=== PATIENT | male | born 1975 | race American Indian/Alaskan Native ===

== ENCOUNTER 2018-10-30 22:18 | Emergency (ER) | payer SELFPAY ==
[2018-10-30] MEDS ORDERED: ZOFRAN IM ONE (22:45)
[2018-10-30] MEDS ORDERED: SUBLIMAZE IM ONE (22:45)
[2018-10-30] MEDS ORDERED: TORADOL IM ONE (22:46)
--- NOTE | 2018-10-30 22:53 | Emergency Department Report ---
HPI - General Chief Complaint: Back Pain/Injury Time Seen by Provider: 10/30/18 22:37 - HPI HPI: Room 6 The patient is a 43-year-old male presenting with chief complaint of back and leg pain. The patient states she had a history of lumbar fusion at L4-L5 in 2010. The patient states since the surgery he is intermittently had pain in the left side of his low back sometimes radiating to the left hip. The patient states for the past 10 days he again suffered from this pain and states it radiates from his low back to the left lower extremity. Patient denies any recent trauma. Patient denies any history of fever. The patient gives his pain score of 8/10 Location: [See above] Duration: [See above] Quality: [See above] Severity: [See above] Modifying factors: [see above] Context: [see above] Mode of transportation: [not driving] ED Past Medical Hx - Past Medical History Previous Medical History?: Yes Hx Hypertension: Yes Hx Heart Attack/AMI: Yes - Surgical History Past Surgical History?: Yes Hx Coronary Stent: Yes (x1) Hx Cholecystectomy: Yes Additional Surgical History: back surgery/fusion L4/L5 2010 - Family History Family history: no significant - Social History Smoking Status: Current Every Day Smoker (1/2 pack per day) Substance Use Type: None (denies illicit drug use), Alcohol (occasional) - Medications Home Medications: Home Medications Medication Instructions Recorded Confirmed Last Taken Type Cyclobenzaprine [Flexeril] 10 mg PO TID PRN #20 tablet 10/30/18 Unknown Rx HYDROcodone/APAP 5-325 [[place] 1 - 2 each PO Q6HR PRN #14 tablet 10/30/18 Unknown Rx 5/325] Ibuprofen [Motrin 800 MG tab] 800 mg PO Q8HR PRN #20 tablet 10/30/18 Unknown Rx ED Review of Systems ROS: Stated complaint: LOWER HIP/BACK PAIN Other details as noted in HPI Constitutional: denies: fever Eyes: denies: eye pain ENT: denies: throat pain Respiratory: no symptoms reported Cardiovascular: denies: chest pain Endocrine: no symptoms reported Gastrointestinal: denies: abdominal pain Genitourinary: denies: dysuria Musculoskeletal: back pain, arthralgia Neurological: denies: headache Physical Exam - Physical Exam Vital Signs: Vital Signs 10/30/18 22:20 Temperature 98.2 F Pulse Rate 76 Respiratory 18 Rate Blood Pressure 209/111 O2 Sat by Pulse 100 Oximetry Physical Exam: GENERAL: The patient is well-developed well-nourished []. [] HEENT: Normocephalic. Atraumatic. Extraocular motions are intact. Patient has moist mucous membranes. NECK: Supple. Trachea midline CHEST/LUNGS: There is no respiratory distress noted. HEART/CARDIOVASCULAR: Regular. There is no tachycardia. 2+ left DP ABDOMEN: Abdomen is soft, nontender. Patient has normal bowel sounds. There is no abdominal distention. SKIN: There is no rash. There is no edema. There is no diaphoresis. NEURO: The patient is awake, alert, and oriented. The patient is cooperative. The patient has normal speech MUSCULOSKELETAL: There is no evidence of acute injury. ED Course Vital Signs 10/30/18 22:20 Temperature 98.2 F Pulse Rate 76 Respiratory 18 Rate Blood Pressure 209/111 O2 Sat by Pulse 100 Oximetry ED Medical Decision Making - Radiology Data Radiology results: report reviewed (lumbar spine x-ray, left hip x-ray), image reviewed (lumbar spine x-ray, left hip x-ray) interpreted by me: Lumbar spine x-ray-no acute fracture seen. Hardware in place Left hip x-ray-no acute fracture [facility] [address] [place] [address] XRay Report Signed Patient: RACHEL ROSE MR#: [id number] : 1975 Acct:[id number] Age/Sex: 43 / M ADM Date: 10/30/18 Loc: ED Attending Dr: Ordering Physician: DHEERAJ ROBLES MD Date of Service: 10/30/18 Procedure(s): XR spine lumbosacral 2-3V Accession Number(s): [id number] cc: DHEERAJ ROBLES MD Fluoro Time In Minutes: LUMBAR SPINE 3 VIEWS INDICATION / CLINICAL INFORMATION: pain. COMPARISON: Pelvis radiograph 10/30/2018 FINDINGS: VERTEBRAE: No acute fracture. Straightening of normal lumbar lordosis is noted, which may be positional. Posterior instrumented fusion has been performed at L5-S1. Hardware appears intact and appropriately aligned. DISC SPACES / FACET JOINTS:Disc spaces are well preserved. Facet arthrosis is present. PARASPINAL SOFT TISSUES:Diffuse atherosclerotic calcification of the infrarenal aorta and iliac arteries is noted. ADDITIONAL FINDINGS: None. Signer Name: Tyler Reyes MD Signed: 10/30/2018 11:22 PM Workstation Name: [id number] Transcribed By: [email or web address] Dictated By: Tyler Reyes MD Electronically Authenticated By: Tyler Reyes MD Signed Date/Time: 10/30/182321 DD/ 19 TD/TT: [facility] [address] [place] [address] XRay Report Signed Patient: RACHEL ROSE MR#: [id number] : 1975 Acct:[id number] Age/Sex: 43 / M ADM Date: 10/30/18 Loc: ED Attending Dr: Ordering Physician: DHEERAJ ROBLES MD Date of Service: 10/30/18 Procedure(s): XR hip 2-3V LT Accession Number(s): [id number] cc: DHEERAJ ROBLES MD Fluoro Time In Minutes: LEFT HIP 2 VIEWS INDICATION / CLINICAL INFORMATION: Pain in left hip. History of injury 2 months ago. COMPARISON: None available. FINDINGS: BONES and JOINT(S): No acute fracture or subluxation. No significant arthritis. Prior fusion of L5- S1 appears unremarkable. SOFT TISSUES: No acute findings. There is moderate generalized atherosclerosis. ADDITIONAL FINDINGS: No additional significant findings. IMPRESSION: No acute findings. Signer Name: Jarrod Mendoza MD Signed: 10/30/2018 11:20 PM Workstation Name: [id number] Transcribed By: RUKHSANA Dictated By: Jarrod Mendoza MD Electronically Authenticated By: Jarrod Mendoza MD Signed Date/Time: 10/30/182319 DD/ 18 TD/TT: - Differential Diagnosis lumbar radiculopathy Critical care attestation.: If time is entered above; I have spent that time in minutes in the direct care of this critically ill patient, excluding procedure time. ED Disposition Clinical Impression: Acute back pain, Lumbar radiculopathy Disposition: - TO HOME OR SELFCARE Is pt being admited?: No Does the pt Need Aspirin: No Condition: Stable Instructions: Lumbar Radiculopathy (ED) Additional Instructions: Return to the emergency department immediately should you develop worsening symptoms, fever, inability to tolerate food or liquid or any other concerns. Prescriptions: Cyclobenzaprine [Flexeril] 10 mg PO TID PRN #20 tablet PRN Reason: Muscle Spasm Ibuprofen [Motrin 800 MG tab] 800 mg PO Q8HR PRN #20 tablet PRN Reason: Pain, Moderate (4-6) HYDROcodone/APAP 5-325 [[place] 5/325] 1 - 2 each PO Q6HR PRN #14 tablet PRN Reason: Pain Referrals: ONEIL JONES MD [Staff Physician] - 3-5 Days (Dr. Jones is an orthopedic surgeon. Please follow-up with him for further evaluation) Time of Disposition: 23:37
--- NOTE | 2018-10-30 23:25 | XRay Report ---
LEFT HIP 2 VIEWS INDICATION / CLINICAL INFORMATION: Pain in left hip. History of injury 2 months ago. COMPARISON: None available. FINDINGS: BONES and JOINT(S): No acute fracture or subluxation. No significant arthritis. Prior fusion of L5-S1 appears unremarkable. SOFT TISSUES: No acute findings. There is moderate generalized atherosclerosis. ADDITIONAL FINDINGS: No additional significant findings. IMPRESSION: No acute findings. Signer Name: Jarrod Mendoza MD Signed: 10/30/2018 11:20 PM Workstation Name: [id number]
--- NOTE | 2018-10-30 23:26 | XRay Report ---
LUMBAR SPINE 3 VIEWS INDICATION / CLINICAL INFORMATION: pain. COMPARISON: Pelvis radiograph 10/30/2018 FINDINGS: VERTEBRAE: No acute fracture. Straightening of normal lumbar lordosis is noted, which may be position al. Posterior instrumented fusion has been performed at L5-S1. Hardware appears intact and appropriat cain aligned. DISC SPACES / FACET JOINTS:Disc spaces are well preserved. Facet arthrosis is present. PARASPINAL SOFT TISSUES:Diffuse atherosclerotic calcification of the infrarenal aorta and iliac arter ies is noted. ADDITIONAL FINDINGS: None. Signer Name: Tyler Reyes MD Signed: 10/30/2018 11:22 PM Workstation Name: [id number]
[2018-10-31] MEDS ORDERED: CATAPRES PO ONE (00:07)
[2018-10-31] MEDS ORDERED: CATAPRES ONE (00:07)
[2018-10-31 01:29] VITALS: BP 155/67
== END 2018-10-31 01:28 | disposition home or self-care (01) ==
LOC: ED 22:18
DX: M54.16 Radiculopathy, lumbar region (principal); I10 Essential (primary) hypertension; F17.200 Nicotine dependence, unspecified, uncomplicated; Z79.1 Long term (current) use of non-steroidal anti-inflammatories (NSAID); Z90.49 Acquired absence of other specified parts of digestive tract
CPT/HCPCS: 72100; 73502; 96372; 99283; J1885; J2405; J3010